=== PATIENT | male | born 1975 | race Two or more races ===

== ENCOUNTER 2016-08-12 08:28 | Emergency (ER) | payer BC ==
[2016-08-12] MEDS ORDERED: Sodium Chloride 0.9% 10 ML Syringe FLUSH PRN (08:54)
[2016-08-12] MEDS ORDERED: Ondansetron 4 MG/2 ML SDV IV ONE (08:54)
[2016-08-12] MEDS ORDERED: fentaNYL 100 MCG/2 ML SDV IVPUSH ONE (08:54)
[2016-08-12] MEDS ORDERED: Sodium Chloride 0.9% 1,000 ML IV ONE ×2 (08:54→12:22)
[2016-08-12 09:36] LABS: CHLORIDE,CL 105 mmol/L (101-111); SODIUM,NA 138 mmol/L (135-145)
[2016-08-12] MEDS ORDERED: Iopamidol 612 MG/ML 100 ML Bottle IVPUSH ONE (09:36)
--- NOTE | 2016-08-12 09:49 | EDM.PDOC ---
{null, ED HPI GENERAL MEDICAL PROBLEM - General Chief Complaint: Abdominal Pain Stated Complaint: STOMACH PAINS Time Seen by Provider: 08/12/16 08:50 Source of Information: Reports: Patient History Limitations: Reports: No Limitations - History of Present Illness INITIAL COMMENTS - FREE TEXT/NARRATIVE: patient comes emergency Department today with complaints of left lower quadrant pain that radiates into his back it has been going on over the past 24 hours. She has had fever and chills at home. He is sweating at times through the sheets on his bed and freezing cold at other times. He has not any nausea or vomiting. He has no chest pain shortness of breath cough weakness. Denies any hematuria dysuria or urinary frequency. He denies any flank pain. He does complain of left lower quadrant pain that is much worse with even the bumps in the road. He has not had any surgery on his abdomen nor has he in any kidney stones in the past. He thought he was constipated yesterday he took multiple laxatives and had multiple bowel movements throughout the night with no change or improvement of his symptoms. He has never had anything like this in the past. - Related Data Allergies Allergy/AdvReac Type Severity Reaction Status Date / Time No Known Allergies Allergy Verified 08/12/16 08:36 Home Meds: Home Meds . [No Known Home Meds] 08/12/16 [History] Past Medical History HEENT History: Reports: None Cardiovascular History: Reports: None Respiratory History: Reports: None Gastrointestinal History: Reports: None Genitourinary History: Reports: None Musculoskeletal History: Reports: None Neurological History: Reports: None Psychiatric History: Reports: None Endocrine/Metabolic History: Reports: None Hematologic History: Reports: None Immunologic History: Reports: None Oncologic (Cancer) History: Reports: None Dermatologic History: Reports: None Social & Family History - Tobacco Use Smoking Status *Q: Current Every Day Smoker Years of Tobacco use: 20 Packs/Tins Daily: 0.5 - Caffeine Use Caffeine Use: Reports: Coffee - Recreational Drug Use Recreational Drug Use: No ED ROS GENERAL - Review of Systems Review Of Systems: See Below HEENT: Reports: No Symptoms Endocrine: Reports: No Symptoms Musculoskeletal: Reports: No Symptoms Neurological: Reports: No Symptoms Psychiatric: Reports: No Symptoms Hematologic/Lymphatic: Reports: No Symptoms Immunologic: Reports: No Symptoms ED EXAM, GI/ABD - Physical Exam Exam: See Below Exam Limited By: No Limitations General Appearance: Alert, WD/WN, No Apparent Distress Ears: Normal External Exam, Normal Canal Nose: Normal Inspection, Normal Mucosa Throat/Mouth: Normal Inspection, Normal Lips, Normal Teeth, Normal Gums, Normal Oropharynx Head: Atraumatic, Normocephalic Neck: Normal Inspection, Supple, Non-Tender, Full Range of Motion Respiratory/Chest: No Respiratory Distress, Lungs Clear, Normal Breath Sounds, No Accessory Muscle Use, Chest Non-Tender Cardiovascular: Normal Peripheral Pulses, Regular Rate, Rhythm, No Edema GI/Abdominal: Normal Bowel Sounds, Soft, Tenderness (left lower quadrant), Rebound (rebound tenderness throughout the abdomen). No: Distention, Guarding (Male) Exam: Deferred Rectal (Males) Exam: Deferred Back Exam: Normal Inspection, Full Range of Motion. No: CVA Tenderness (L), CVA Tenderness (R) Extremities: Normal Inspection, Normal Range of Motion, No Pedal Edema Neurological: Alert, Oriented, CN II-XII Intact, Normal Cognition Skin Exam: Intact, No Rash, Cool, Diaphoretic Course - Vital Signs Last Recorded V/S: Last Vital Signs Temp 36.2 C 08/12/16 11:27 Pulse 70 08/12/16 11:27 Resp 20 08/12/16 11:27 BP 114/70 08/12/16 11:27 Pulse Ox 96 08/12/16 11:27 - Orders/Labs/Meds Orders: Active Orders 24 hr Category Date Time Status Peripheral IV Care [RC] . DIRECTED Care 08/12/16 08:55 Active UA W/MICROSCOPIC [URIN] Stat Lab 08/12/16 08:53 Uncollected Sodium Chloride 0.9% [Normal Saline] 1,000 ml Med 08/12/16 12:22 Active IV .BOLUS Sodium Chloride 0.9% [Saline Flush] Med 08/12/16 08:54 Active 10 ml FLUSH ASDIRECTED PRN Peripheral IV Insertion Adult [OM.PC] Stat Oth 08/12/16 08:53 Ordered Medication Orders Sodium Chloride (Normal Saline) 1,000 mls @ 999 mls/hr IV .BOLUS ONE Stop: 08/12/16 13:22 Last Admin: 08/12/16 12:25 Dose: 999 mls/hr Sodium Chloride (Saline Flush) 10 ml FLUSH ASDIRECTED PRN PRN Reason: Keep Vein Open Last Admin: 08/12/16 09:15 Dose: 10 ml Labs: Laboratory Tests 08/12/16 08/12/16 08/12/16 Range/Units 08:58 08:58 08:58 WBC 12.1 H (5.0-10.0) 10^3/uL RBC 4.68 (4.6-6.2) 10^6/uL Hgb 14.5 (14.0-18.0) g/dL Hct 42.8 (40.0-54.0) % MCV 91.5 (80-100) fL MCH 31.0 (27.0-34.0) pg MCHC 33.9 (33.0-35.0) g/dL Plt Count 205 (150-450) 10^3/uL Neut % (Auto) 79.6 H (42.2-75.2) % Lymph % (Auto) 13.1 L (20.5-50.1) % [place] % (Auto) 6.6 (2-8) % Eos % (Auto) 0.5 L (1.0-3.0) % Baso % (Auto) 0.2 (0.0-1.0) % Sodium 138 (135-145) mmol/L Potassium 4.0 (3.6-5.0) mmol/L Chloride 105 (101-111) mmol/L Carbon Dioxide 25.0 (21.0-31.0) mmol/L Anion Gap 12.0 BUN 14 (7-18) mg/dL Creatinine 1.0 (0.6-1.3) mg/dL Est Cr Clr Drug Dosing 107.64 mL/min Estimated GFR (MDRD) > 60 BUN/Creatinine Ratio 14.00 Glucose 109 H (74-105) mg/dL Lactic Acid (0.5-2.2) mmol/L Calcium 9.3 (8.4-10.2) mg/dl Total Bilirubin 1.2 H (0.2-1.0) mg/dL AST 17 (10-42) IU/L ALT 22 (10-60) IU/L Alkaline Phosphatase 58 (42-121) IU/L C-Reactive Protein 13.7 H (0.0-1.3) mg/dL Total Protein 7.8 (6.7-8.2) g/dl Albumin 4.4 (3.2-5.5) g/dl Globulin 3.4 Albumin/Globulin Ratio 1.29 08/12/16 Range/Units 09:08 WBC (5.0-10.0) 10^3/uL RBC (4.6-6.2) 10^6/uL Hgb (14.0-18.0) g/dL Hct (40.0-54.0) % MCV (80-100) fL MCH (27.0-34.0) pg MCHC (33.0-35.0) g/dL Plt Count (150-450) 10^3/uL Neut % (Auto) (42.2-75.2) % Lymph % (Auto) (20.5-50.1) % [place] % (Auto) (2-8) % Eos % (Auto) (1.0-3.0) % Baso % (Auto) (0.0-1.0) % Sodium (135-145) mmol/L Potassium (3.6-5.0) mmol/L Chloride (101-111) mmol/L Carbon Dioxide (21.0-31.0) mmol/L Anion Gap BUN (7-18) mg/dL Creatinine (0.6-1.3) mg/dL Est Cr Clr Drug Dosing mL/min Estimated GFR (MDRD) BUN/Creatinine Ratio Glucose (74-105) mg/dL Lactic Acid 0.6 (0.5-2.2) mmol/L Calcium (8.4-10.2) mg/dl Total Bilirubin (0.2-1.0) mg/dL AST (10-42) IU/L ALT (10-60) IU/L Alkaline Phosphatase (42-121) IU/L C-Reactive Protein (0.0-1.3) mg/dL Total Protein (6.7-8.2) g/dl Albumin (3.2-5.5) g/dl Globulin Albumin/Globulin Ratio Meds: Medications Generic Name Dose Route Start Last Admin Trade Name Freq PRN Reason Stop Dose Admin Sodium Chloride 1,000 mls @ 999 mls/hr 08/12/16 12:22 08/12/16 12:25 Normal Saline IV 08/12/16 13:22 999 mls/hr .BOLUS ONE Administration Sodium Chloride 10 ml 08/12/16 08:54 08/12/16 09:15 Saline Flush FLUSH 10 ml ASDIRECTED PRN Administration Keep Vein Open Discontinued Medications Generic Name Dose Route Start Last Admin Trade Name Chekoq PRN Reason Stop Dose Admin Fentanyl 50 mcg 08/12/16 08:54 08/12/16 09:21 Sublimaze IVPUSH 08/12/16 08:55 50 mcg ONETIME ONE Administration Hydromorphone HCl 1 mg 08/12/16 10:09 08/12/16 10:18 Dilaudid IVPUSH 08/12/16 10:10 1 mg ONETIME ONE Administration Sodium Chloride 1,000 mls @ 999 mls/hr 08/12/16 08:54 08/12/16 09:15 Normal Saline IV 08/12/16 09:54 999 mls/hr .BOLUS ONE Administration Ciprofloxacin/Dextrose 400 mg/ 200 mls @ 200 mls/hr 08/12/16 09:53 08/12/16 11:17 Premix IV 08/12/16 10:52 200 mls/hr ONETIME ONE Administration Metronidazole 500 mg/ Premix 100 mls @ 100 mls/hr 08/12/16 09:53 08/12/16 09: 59 IV 08/12/16 10:52 100 mls/hr ONETIME ONE Administration Iopamidol 100 ml 08/12/16 09:36 08/12/16 09:36 Isovue-300 (61%) IVPUSH 08/12/16 09:37 100 ml ONETIME ONE Administration Ondansetron HCl 4 mg 08/12/16 08:54 08/12/16 09:17 Zofran IV 08/12/16 08:55 4 mg ONETIME ONE Administration - Radiology Interpretation Free Text/Narrative:: ED abdomen and pelvis per radiology acute diverticulitis of the descending left colon. No CT evidence of abscess or perforation. - Re-Assessments/Exams Free Text/Narrative Re-Assessment/Exam: 08/12/16 09:50 IV NS 1 liter wide open for IV hydration. Zofran 4mg IVp Fentanyl 50mcg IVP Report per radiology diverticulitis without perforation or abscess. Cipro 400mg IVPB Flagyl 500mg IVPB Dilaudid 1mg IVP. 08/12/16 12:23 After the liter of fluid the patient has only urinated aprox 100mls very dark concentrated urine. 2nd liter of NS wide open. the patient's pain was much improved following the Dilaudid as above. He has no nausea or vomiting. I explained to him the natural course of diverticulitis and that he will have a chronic history of diverticulosis now. He will need a recheck in the clinic in the middle of next week to ensure that he is improving. If he is not he is to return to the emergency department for reevaluation. Medications as described on his discharge plan were explained to him. Discharge instructions were explained and he was comfortable with this plan and his questions were answered. Departure - Departure Time of Disposition: 13:00 Disposition: Home, Self-Care 01 Condition: good Clinical Impression: Diverticulitis large intestine Qualifiers: Diverticulitis bleeding: unspecified bleeding status Diverticulitis complication: without perforation or abscess Qualified Code(s): K57.32 - Diverticulitis of large intestine without perforation or abscess without bleeding - Discharge Information Instructions: Diverticulitis, [id number] Forms: ED Department Discharge Additional Instructions: Read Diverticulitis instruction sheet. Bowel rest, clear liquid diet and then slowly advance when pain, fever chills nausea resolved. Cipro 500mg by mouth twice a day for 10 days. Flagyl 500mg three times a day for 10 days. Hydrocodone 1 tablet every 6 hrs as needed for pain. Caution sedation. Recheck primary care in the next 4-6 days to ensure improvement, sooner of worse. Return to the ED if new or worsening symptoms. - My Orders Last 24 Hours: My Active Orders 08/12/16 08:53 UA W/MICROSCOPIC [URIN] Stat Peripheral IV Insertion Adult [OM.PC] Stat 08/12/16 08:54 Sodium Chloride 0.9% [Saline Flush] 10 ml FLUSH ASDIRECTED PRN 08/12/16 08:55 Peripheral IV Care [RC] . DIRECTED 08/12/16 12:22 Sodium Chloride 0.9% [Normal Saline] 1,000 ml IV .BOLUS - Assessment/Plan Last 24 Hours: My Active Orders 08/12/16 08:53 UA W/MICROSCOPIC [URIN] Stat Peripheral IV Insertion Adult [OM.PC] Stat 08/12/16 08:54 Sodium Chloride 0.9% [Saline Flush] 10 ml FLUSH ASDIRECTED PRN 08/12/16 08:55 Peripheral IV Care [RC] . DIRECTED 08/12/16 12:22 Sodium Chloride 0.9% [Normal Saline] 1,000 ml IV .BOLUS Assessment:: Diverticulitis without evidence of perforation or abscess. Plan: Read Diverticulitis instruction sheet. Bowel rest, clear liquid diet and then slowly advance when pain, fever chills nausea resolved. Cipro 500mg by mouth twice a day for 10 days. Flagyl 500mg three times a day for 10 days. Hydrocodone 1 tablet every 6 hrs as needed for pain. Caution sedation. Recheck primary care in the next 4-6 days to ensure improvement, sooner of worse. Return to the ED if new or worsening symptoms. }
[2016-08-12] MEDS ORDERED: metroNIDAZOLE/Normal Saline 500 MG in Premix Bag 100 BAG IV ONE (09:53)
[2016-08-12] MEDS ORDERED: Ciprofloxacin in D5W 400 MG in Premix Bag 1 BAG IV ONE ×2 (09:53)
--- NOTE | 2016-08-12 10:05 | CT ---
{null, Clinical history: 41-year-old 230 pound male left lower quadrant pain, fever and chills. Scan technique: Volume acquisition of data emergency CT scan of the abdomen and pelvis obtained duri ng the intravenous administration 100 cc nonionic Isovue contrast while patient was lying supine on the Siemens multi slice CT scanner [place], [place]. All data archive d in the PACS system for storage, reformatting and study. Interpretation: Abnormal. 1. Evidence of focal pericolonic inflammation left lower quadrant of the abdomen i.e. several divert icula descending left colon with adjacent inflammatory "dirty" peritoneal fat and trace of fluid in the ipsilateral paracolic "gutter". No sign of abscess, mechanical bowel obstruction, or free air. 2. Normal appendix RLQ. 3. No pelvic or abdominal mass lesion and no sign of mesenteric/retroperitoneal lymphadenopathy. 4. Gallbladder, liver, stomach, spleen, pancreas and adrenal glands unremarkable. 5. Normal reniform size axis and configuration. No sign of renal cortical mass lesion, nephrolithias is or obstructive uropathy. Symmetrically distended normal appearing urinary bladder. Prostate gland and seminal vesicles unremarkable. No pelvic lymphadenopathy. 6. Normal cardiac silhouette. Lung bases clear. Arthritic changes lower lumbar spine. Normal caliber abdominal aorta and its major branches. CONCLUSION: Acute diverticulitis descending left colon. }
[2016-08-12] MEDS ORDERED: HYDROmorphone 1 MG/ML Syringe IVPUSH ONE (10:09)
[2016-08-12 11:27] VITALS: BP 114/70
== END 2016-08-12 13:00 | disposition home or self-care (01) ==
LOC: DL.ED 08:28
DX: K57.32 Diverticulitis of large intestine without perforation or abscess without bleeding (principal); F17.210 Nicotine dependence, cigarettes, uncomplicated
CPT/HCPCS: 36415; 74177; 80053; 81001; 83605; 85025; 86140; 96361; 96365; 96367; 96375; 99284; J0744; J1170; J2405; J3010; J7030; J7050; Q9967

== ENCOUNTER 2025-02-18 23:30 | Emergency (ER) | payer SELFPAY ==
[2025-02-19] MEDS: methylPREDNISolone 4 MG Tab 21 Tab/Dosepak PO SCH (00:37)
[2025-02-19 00:45] VITALS: BP 146/64; PULSE 76
== END 2025-02-19 00:45 | disposition home or self-care (01) ==
LOC: DL.ED 23:30
DX: M10.9 Gout, unspecified (principal)
CPT/HCPCS: 36415; 84550; 99283; A9270-GY; J7509